=== PATIENT | male | born 1955 | race Caucasian/White ===

== ENCOUNTER → 2019-12-09 12:49 | Outpatient (BNVA) | payer OTHER, SELFPAY | PROVIDERS: PCP Urology; Visit Provider Urology | DX: N52.9 Male erectile dysfunction, unspecified (principal); Z80.42 Family history of malignant neoplasm of prostate | CPT/HCPCS: 81001 ==

== ENCOUNTER 2021-12-05 09:14 | Outpatient (CLI) | payer SELFPAY ==
[2021-12-05 10:23] LABS: PSA Screen - Urology 0.96 ng/mL (0-4)
== END 2021-12-05 09:15 | disposition home or self-care (01) ==
PROVIDERS: Visit Provider Urology
DX: N52.9 Male erectile dysfunction, unspecified (principal); Z80.42 Family history of malignant neoplasm of prostate
CPT/HCPCS: 36415; G0103

== ENCOUNTER 2024-07-10 13:14 | Outpatient (CLI) | payer MEDICARE, SELFPAY | END 2024-07-10 13:15 | disposition home or self-care (01) | LOC: SLEEP 13:19 | PROVIDERS: PCP Family Medicine; Visit Provider Family Medicine | DX: G47.33 Obstructive sleep apnea (adult) (pediatric) (principal) | CPT/HCPCS: G0399 ==